=== PATIENT | male | born 1955 | race Caucasian/White ===

== ENCOUNTER 2018-09-20 17:55 | Inpatient (IN) | payer OTHER, MEDICAID ==
[~2018-09-20] VITALS: Ht 188 cm; Wt 74.8 kg
[2018-09-20 18:09] VITALS: BP_SYST 123
[2018-09-20 19:00] LABS: BASOPHILS # (AUTO) 0.1 K/uL (0.0-0.2); BASOPHILS % (AUTO) 2.3 % (0.0-2.0); EOSINOPHILS # (AUTO) 0.2 K/uL (0.0-0.4); EOSINOPHILS % (AUTO) 3.7 % (0.0-4.0); HEMATOCRIT 30.3 % (36-54); HEMOGLOBIN 9.3 g/dL (14.0-18.0); LYMPHOCYTES # (AUTO) 1.4 K/uL (1.0-5.5); LYMPHOCYTES % (AUTO) 26.2 % (20.5-51.5); MEAN CORPUSCULAR HEMOGLOBIN 27 pg (27-31); MEAN CORPUSCULAR HGB CONC 31 % (32-36); MEAN CORPUSCULAR VOLUME 87 fL (79.0-98.0); MONOCYTES # (AUTO) 0.5 K/uL (0.0-1.0); MONOCYTES % (AUTO) 8.4 % (1.7-9.3); NEUTROPHILS # (AUTO) 3.3 K/uL (1.8-7.7); NEUTROPHILS % (AUTO) 59.4 % (40.0-70.0); PLATELET COUNT (AUTO) 334 K/uL (130-430); RED CELL DISTRIBUTION WIDTH 17.9 % (9.0-15.0); WHITE BLOOD COUNT (AUTO) 5.5 K/uL (4.8-10.8)
[2018-09-20 19:31] LABS: INR 0.9 (0.80-1.20); PROTHROMBIN TIME 9.4 SECS (9.5-12.5)
[2018-09-20 19:50] LABS: CALCIUM 8.6 mg/dL (8.4-11.0); CREATININE 1.37 mg/dL (0.55-1.30)
[2018-09-20 19:56] LABS: ALBUMIN 3.6 g/dL (3.4-4.8); TOTAL BILIRUBIN 0.1 mg/dL (0.0-1.0)
--- NOTE | 2018-09-20 20:18 | NUR ---
Patient to ER bed 1 to gown for evaluation. Side rails up. Report given to KAMALA MCCLOUD.
--- NOTE | 2018-09-20 20:38 | NUR ---
2037 - Assumed care of pt, pt states he has been constipated x 3 days. Pain is suprapubic area. States he has to use milk of magnesia for every BM and has had that issue off and on for the last 3 years, since the morphine pain pump was inserted. Pt is A&OX4, states pain is 9/10. Vss. Pt requesting dilaudid for pain. Will continue to monitor.
--- NOTE | 2018-09-20 22:38 | NUR ---
2238 - ER at bedside examining patient.
[2018-09-20] MEDS ORDERED: PRO40 PO (23:01)
[2018-09-20] MEDS ORDERED: FURO-150 PO (23:01)
[2018-09-20] MEDS ORDERED: TRAZ-219 PO (23:01)
[2018-09-20] MEDS ORDERED: POTA8TAB4 PO (23:01)
[2018-09-20] MEDS ORDERED: VENL75CA PO (23:01)
[2018-09-20] MEDS ORDERED: TOP25 PO (23:01)
--- NOTE | 2018-09-20 23:31 | NUR ---
2331 - Patient will be admitted to care of [facility]. Admitted to med surg unit. Will go to room 110B. Belongings list completed. Summary report printed. Report given over phone.
--- NOTE | 2018-09-20 23:50 | NUR ---
ADMISSION NOTE Received patient from ER via gurney. Patient admitted with diagnosis of FECAL IMPACTION. Patient is awake, alert, oriented X 4. Patient oriented to hospital room, call light, toileting, pain management and safety-teach back done. Patient informed that MYRTLE will be HIS nurse and that their room number is 110B. Personal belongings checked and Belongings List documented. Call light within reach.
[2018-09-21] MEDS ORDERED: LORazepam 2 MG/ML VIAL IVP PRN
[2018-09-21] MEDS ORDERED: ONDANSETRON HCL 4 MG/2 ML VIAL IVP PRN
[2018-09-21] MEDS: D5/0.45 NS 1,000 ML IV SCH ×3 (00:33→21:08)
[2018-09-21] MEDS ORDERED: traZODone HCL 50 MG TABLET (DESYREL) PO SCH (01:00)
--- NOTE | 2018-09-21 01:05 | NUR ---
Consultation Paged Reason for Consultation: order Was consult called: Y Person who was notified: [employer] Consulting Physician: Sue Schultz (Dr. Galvan documentation spec) Furnace Worker Ordering Physican: Babar Doherty
[2018-09-21 01:32] VITALS: BP_SYST 138
[2018-09-21] MEDS ORDERED: DOCUSATE SODIUM 100 MG CAPSULE PO PRN (06:30)
--- NOTE | 2018-09-21 06:40 | NUR ---
CLOSING: PATIENT SLEPT AT LONG INTERVALS AFTER TRAZADONE TAKEN.VITAL SIGNS STABLE. IVF INFUSING WELL SITE CLEAR. NO ACUTE CARDIOPULMONARY DISTRESS SINCE ADMIT.CALL LIGHT WITHIN REACH. BED IN LOW POSITION.WILL ENDORSE CARE TO AM RN FOR CONTINUATION.HAS NOT VOIDED ,SAID WILL DO LATER,HAD SOME IN ER.
[2018-09-21 06:53] LABS: BASOPHILS # (AUTO) 0.1 K/uL (0.0-0.2); BASOPHILS % (AUTO) 1.3 % (0.0-2.0); EOSINOPHILS # (AUTO) 0.1 K/uL (0.0-0.4); EOSINOPHILS % (AUTO) 2.1 % (0.0-4.0); HEMATOCRIT 28.6 % (36-54); HEMOGLOBIN 8.9 g/dL (14.0-18.0); LYMPHOCYTES # (AUTO) 1.5 K/uL (1.0-5.5); LYMPHOCYTES % (AUTO) 25.6 % (20.5-51.5); MEAN CORPUSCULAR HEMOGLOBIN 27 pg (27-31); MEAN CORPUSCULAR HGB CONC 31 % (32-36); MEAN CORPUSCULAR VOLUME 85 fL (79.0-98.0); MONOCYTES # (AUTO) 0.6 K/uL (0.0-1.0); NEUTROPHILS # (AUTO) 3.5 K/uL (1.8-7.7); PLATELET COUNT (AUTO) 298 K/uL (130-430); RED BLOOD CELL COUNT(AUTO) 3.35 MIL/uL (4.2-6.2); RED CELL DISTRIBUTION WIDTH 17.9 % (9.0-15.0); WHITE BLOOD COUNT (AUTO) 5.9 K/uL (4.8-10.8)
[2018-09-21 07:27] LABS: ALBUMIN 3.1 g/dL (3.4-4.8); CALCIUM 8.4 mg/dL (8.4-11.0); CREATININE 1.23 mg/dL (0.55-1.30); POTASSIUM 3.5 mmol/L (3.5-5.1); TOTAL BILIRUBIN 0.3 mg/dL (0.0-1.0)
[2018-09-21 08:00] VITALS: BP_SYST 150
--- NOTE | 2018-09-21 08:00 | NUR ---
AM NOTES IN BED, AWAKE. DENIES ANY PAIN AT THIS TIME. DENIES ANY SHORTNESS OF BREATH. IVF INFUSING WELL. AMBULATE WITH ASSIST. REFUSED BED ALARM. SAFETY PRECAUTION OBSERVED. ENC. TO CALL FOR HELP NEEDED. CALL LIGHT IN REACH. WILL MONITOR.
[2018-09-21] MEDS: POTASSIUM CHLORIDE 8 MEQ TABLET.SA PO SCH (08:31)
[2018-09-21] MEDS: PANTOPRAZOLE SODIUM 40 MG TAB PO SCH ×2 (08:31→21:06)
[2018-09-21] MEDS: FUROSEMIDE 20 MG TABLET PO SCH (08:32)
[2018-09-21] MEDS: POLYETHYLENE GLYCOL 3350, 17 GM/ POWD.PACK PO SCH (08:32)
--- NOTE | 2018-09-21 09:36 | NUR ---
MD ROUNDS' SEEN BY DR. CONTEH AT BEDSIDE.
[2018-09-21] MEDS ORDERED: MAGNESIUM CITRATE 300 ML ORAL SOLUTION PO ONE (09:45)
[2018-09-21] MEDS: Effexor XR 37.5 MG PO SCH (10:15)
--- NOTE | 2018-09-21 11:00 | NUR ---
notes- Pt complains of pain on his IV on the right AC. removed IV and started a new one on the right upper arm no.22.
[2018-09-21 11:32] VITALS: BP_SYST 142
[2018-09-21] MEDS: MINERAL OIL 30 ML UDC PO SCH ×2 (12:00→17:10)
--- NOTE | 2018-09-21 12:26 | NUR ---
pt refused mineral oil.
--- NOTE | 2018-09-21 15:07 | NUR ---
Notes Assisted to the bathroom and had big bowel movement. family at bedside. denies any pain at this time. no distress noted.
[2018-09-21 15:39] VITALS: BP_SYST 154
--- NOTE | 2018-09-21 18:30 | NUR ---
Notes- In bed, eating dinner. family at bedside. no distress noted. has bowel movement. refused mineral oil.
--- NOTE | 2018-09-21 18:45 | NUR ---
Notes Patient complain of pain on his hips, pelvic area. no ordered for pain medication. Paged Dr. Cruz.
--- NOTE | 2018-09-21 18:59 | NUR ---
PAGED PAGED DANA MELTON FOR ORDERS, SPOKE WITH JODIE.
--- NOTE | 2018-09-21 19:55 | NUR ---
DR. Adrian CORTEZ CALLED BACK, NO ORDER GIVEN FOR PRN PAIN MEDICATION SINCE PATIENT HAS ALREADY MORPHINE PUMP. WILL CONTINUE TO MONITOR.
[2018-09-21 20:00] VITALS: BP_SYST 145
--- NOTE | 2018-09-21 20:30 | NUR ---
ROUNDS PATIENT RESTING COMFORTABLY IN BED, NOT IN DISTRESS, VITALS STABLE. CLAIMED TO HAVE PAIN ON HIS PELVIC AREA AND TO HIS THIGHS AND WANTS PAIN MEDICATION. STILL WAITING FOR DR. CORTEZ TO RETURN CALL FOR ORDERS. NEEDS ATTENDED TO. ASSESSMENT DONE AND DOCUMENTED. SEE FLOWSHEET. SAFETY AND FALL PRECAUTION MEASURES IN PLACED. PATIENT REFUSED BED ALARM ON. CALL LIGHT PLACED WITHIN REACH.
[2018-09-21] MEDS ORDERED: BUDESONIDE/FORMOTEROL 160-4.5 mCg, 6 GM INHALER INH SCH (21:00)
[2018-09-21] MEDS ORDERED: LUBIPROSTONE 24 MCG CAPSULE PO SCH (21:00)
[2018-09-21] MEDS: traZODone HCL 50 MG TABLET (DESYREL) PO SCH (21:07)
[2018-09-21] MEDS: TOPIRAMATE 25 MG TABLET(TOPAMAX) PO SCH (21:07)
--- NOTE | 2018-09-22 00:14 | NUR ---
PATIENT RESTING: Patient resting quietly. No acute distress noted. Vital signs within normal range.
--- NOTE | 2018-09-22 02:15 | NUR ---
ROUNDS PATIENT ASLEEP, RESPIRATIONS EVEN AND UNLABORED, NO SIGNS OF ANY PAIN AND DISCOMFORT NOTED. WILL CONTINUE TO MONITOR.
[2018-09-22 02:17] VITALS: BP_SYST 133
[2018-09-22] MEDS: BUDESONIDE 0.5 MG/2 ML AMPUL.NEB INH SCH ×3 (02:30→20:33)
[2018-09-22] MEDS: ALBUTEROL SULFATE 0.083% 2.5 MG/3 ML VIAL.NEB INH SCH ×3 (02:30→20:02)
--- NOTE | 2018-09-22 04:10 | NUR ---
PATIENT RESTING: Patient resting quietly. No acute distress noted. Vital signs within normal range.
[2018-09-22] MEDS: D5/0.45 NS 1,000 ML IV SCH ×3 (05:58→22:05)
[2018-09-22] MEDS: MINERAL OIL 30 ML UDC PO SCH ×2 (06:00)
--- NOTE | 2018-09-22 06:24 | NUR ---
CLOSING NOTES PATIENT AWAKE, VITALS STABLE, NO PAIN AT THIS TIME. ALL NEEDS ATTENDED TO. SAFETY AND FALL PRECAUTION MEASURES MAINTAINED. CALL LIGHT PLACED WITHIN REACH.
[2018-09-22 06:58] LABS: BASOPHILS % (AUTO) 0.7 % (0.0-2.0); EOSINOPHILS # (AUTO) 0.1 K/uL (0.0-0.4); EOSINOPHILS % (AUTO) 1.6 % (0.0-4.0); HEMOGLOBIN 9.1 g/dL (14.0-18.0); LYMPHOCYTES # (AUTO) 1.7 K/uL (1.0-5.5); LYMPHOCYTES % (AUTO) 31.6 % (20.5-51.5); MEAN CORPUSCULAR HEMOGLOBIN 27 pg (27-31); MEAN CORPUSCULAR HGB CONC 31 % (32-36); MEAN CORPUSCULAR VOLUME 86 fL (79.0-98.0); MONOCYTES # (AUTO) 0.7 K/uL (0.0-1.0); MONOCYTES % (AUTO) 12.8 % (1.7-9.3); NEUTROPHILS # (AUTO) 2.9 K/uL (1.8-7.7); NEUTROPHILS % (AUTO) 53.3 % (40.0-70.0); PLATELET COUNT (AUTO) 305 K/uL (130-430); RED BLOOD CELL COUNT(AUTO) 3.38 MIL/uL (4.2-6.2); RED CELL DISTRIBUTION WIDTH 17.6 % (9.0-15.0); WHITE BLOOD COUNT (AUTO) 5.4 K/uL (4.8-10.8)
[2018-09-22 07:24] LABS: CALCIUM 8.2 mg/dL (8.4-11.0); CREATININE 1.09 mg/dL (0.55-1.30); POTASSIUM 3.7 mmol/L (3.5-5.1)
[2018-09-22 07:40] LABS: TOTAL IRON BIND. CAPACITY 427 ug/dL (250-450)
[2018-09-22 07:45] VITALS: BP_SYST 147
[2018-09-22 07:52] VITALS: BP_SYST 147
--- NOTE | 2018-09-22 08:03 | NUR ---
AM NOTES- IN BED, EATING BREAKFAST. PAIN IS CONTROLLED, HAS PAIN PUMP ON RIGHT ABDOMEN. IVF INFUSING WELL. SAFETY PRECAUTION OBSERVED. CALL LIGHT IN REACH. ENC. TO CALL FOR HELP NEEDED.
[2018-09-22] MEDS: PANTOPRAZOLE SODIUM 40 MG TAB PO SCH ×2 (08:56→20:42)
[2018-09-22] MEDS: FUROSEMIDE 20 MG TABLET PO SCH (08:57)
[2018-09-22] MEDS: LUBIPROSTONE 24 MCG CAPSULE PO SCH ×2 (08:57→20:42)
[2018-09-22] MEDS: POTASSIUM CHLORIDE 8 MEQ TABLET.SA PO SCH (08:57)
[2018-09-22] MEDS: Effexor XR 37.5 MG PO SCH (08:57)
[2018-09-22] MEDS: POLYETHYLENE GLYCOL 3350, 17 GM/ POWD.PACK PO SCH ×2 (08:57→09:00)
--- NOTE | 2018-09-22 11:46 | NUR ---
NOTES- RESTING IN BED, DENIES ANY PAIN OR SHORTNESS OF BREATH. ENC, TO CALL FOR HELP NEEDED.
[2018-09-22 12:02] VITALS: BP_SYST 140
[2018-09-22 16:02] VITALS: BP_SYST 129
--- NOTE | 2018-09-22 16:06 | NUR ---
Notes- patient's at bedside and asking if there is an order for colonoscopy. Patient's stated that she wants colonoscopy because its been more than five years. [address] Galvan. waiting for MD to call back.
--- NOTE | 2018-09-22 17:38 | NUR ---
notes- Spoke to Dr. suggs and made aware of patient's request to do colonoscopy. Per MD, They can do Colonoscopy as an outpatient and just follow up with him as an outpatient. Informed patient, is not at bedside anymore.
--- NOTE | 2018-09-22 18:59 | NUR ---
NOTES- IN BED, AWAKE. EATING DINNER. IVF INFUSING WELL. NO CHANGE IN ASSESSMENT. ALL NEEDS MEET. WILL ENDORSE.
[2018-09-22 19:08] VITALS: BP_SYST 127
--- NOTE | 2018-09-22 19:08 | NUR ---
Start of shift notes Received patient in bed awake alert oriented x4. No c/o pain and no s/s of any distress noted. IV noted to R a/c g 20 no infiltrate and with good blood return. Morphine pump to LLQ noted, and spinal stimulator to L buttocks. BUE are strong and BLE are mildly weak. Discussed plan of care with anxiety and verbalized understanding. Will cont to monitor.
[2018-09-22] MEDS: TOPIRAMATE 25 MG TABLET(TOPAMAX) PO SCH (20:42)
[2018-09-22] MEDS: traZODone HCL 50 MG TABLET (DESYREL) PO SCH (20:42)
--- NOTE | 2018-09-22 21:46 | NUR ---
Rounds Assisted to b/r and safely back to bed. Will cont to monitor.
[2018-09-23 00:02] VITALS: BP_SYST 131
--- NOTE | 2018-09-23 06:54 | NUR ---
End of shift note Patient is resting with eyes close at this time. No c/o pain and no s/s of any distress noted. All needs met and anticipated by noc nurses.Call light in reach, will endorse to incoming nurse.
[2018-09-23 06:59] LABS: BASOPHILS # (AUTO) 0.1 K/uL (0.0-0.2); BASOPHILS % (AUTO) 1.2 % (0.0-2.0); EOSINOPHILS # (AUTO) 0.1 K/uL (0.0-0.4); EOSINOPHILS % (AUTO) 2.2 % (0.0-4.0); HEMATOCRIT 28.2 % (36-54); HEMOGLOBIN 8.8 g/dL (14.0-18.0); LYMPHOCYTES # (AUTO) 1.7 K/uL (1.0-5.5); LYMPHOCYTES % (AUTO) 31.8 % (20.5-51.5); MEAN CORPUSCULAR HEMOGLOBIN 27 pg (27-31); MEAN CORPUSCULAR HGB CONC 31 % (32-36); MEAN CORPUSCULAR VOLUME 85 fL (79.0-98.0); MONOCYTES # (AUTO) 0.8 K/uL (0.0-1.0); MONOCYTES % (AUTO) 14.1 % (1.7-9.3); NEUTROPHILS # (AUTO) 2.7 K/uL (1.8-7.7); NEUTROPHILS % (AUTO) 50.7 % (40.0-70.0); PLATELET COUNT (AUTO) 279 K/uL (130-430); RED BLOOD CELL COUNT(AUTO) 3.32 MIL/uL (4.2-6.2); RED CELL DISTRIBUTION WIDTH 17.7 % (9.0-15.0); WHITE BLOOD COUNT (AUTO) 5.4 K/uL (4.8-10.8)
--- NOTE | 2018-09-23 07:20 | NUR ---
Initial notes: Patient awake, alert and oriented. Stable. I.V. access patent. Discussed plan of care. Call light within reach. Safety measures in placed. Report received from [facility].
[2018-09-23] MEDS: ALBUTEROL SULFATE 0.083% 2.5 MG/3 ML VIAL.NEB INH SCH (07:38)
[2018-09-23] MEDS: BUDESONIDE 0.5 MG/2 ML AMPUL.NEB INH SCH (07:39)
[2018-09-23 07:42] LABS: CALCIUM 8.2 mg/dL (8.4-11.0); CREATININE 0.99 mg/dL (0.55-1.30); POTASSIUM 4.2 mmol/L (3.5-5.1)
[2018-09-23 08:00] VITALS: BP_SYST 138
[2018-09-23] MEDS: LUBIPROSTONE 24 MCG CAPSULE PO SCH (08:47)
[2018-09-23] MEDS: PANTOPRAZOLE SODIUM 40 MG TAB PO SCH (08:47)
[2018-09-23] MEDS: POTASSIUM CHLORIDE 8 MEQ TABLET.SA PO SCH (08:47)
[2018-09-23] MEDS: FUROSEMIDE 20 MG TABLET PO SCH (08:48)
[2018-09-23] MEDS: D5/0.45 NS 1,000 ML IV SCH (08:49)
[2018-09-23] MEDS: POLYETHYLENE GLYCOL 3350, 17 GM/ POWD.PACK PO SCH (08:55)
[2018-09-23] MEDS: Effexor XR 37.5 MG PO SCH (08:55)
--- NOTE | 2018-09-23 11:09 | NUR ---
rounds: patient resting on bed. no distress noted.
[2018-09-23 12:02] VITALS: BP_SYST 124
--- NOTE | 2018-09-23 13:21 | NUR ---
rounds: patient on bed finishing lunch meal. no distress noted.
--- NOTE | 2018-09-23 15:25 | NUR ---
P.T. NOTES P.T. AXEL COMPLETED; NURSING TO AMBULATE AD JAMIA. Addendum: 09/23/18 at 1525 by Sherron Humphrey PT Amended: Links added.
[2018-09-23] MEDS ORDERED: POLY17PO4 PO (16:06)
[2018-09-23] MEDS ORDERED: LUBI24CA5 PO (16:06)
[2018-09-23 16:26] VITALS: BP_SYST 123
--- NOTE | 2018-09-23 16:51 | NUR ---
D/C Patient Patient given medication reconciliation form and D/C instructions. Exit Care provided. Patient verbalized understanding. MD discussed with patient the results and treatment provided. Ambulatory with steady gait for discharge to home. Patient in stable condition, ID band removed. IV catheter removed, intact and dressing applied, no active bleeding. Rx of Amitiza and Miralax given. Patient educated on pain management. All belongings sent with patient.
[2018-09-25 05:21] LABS: FOLATE (FOLIC ACID) >20.0 ng/mL (>3.0)
[2018-09-25 11:53] LABS: FERRITIN 7 ng/mL (30-400)
== END 2018-09-23 17:07 | disposition home or self-care (01) | DRG 684 ==
LOC: SED 17:55 → SMU 22:53
PROVIDERS: ADMIT Preventive Medicine Preventive Medicine/Occupational Environmental Medicine; ATTEND Preventive Medicine Preventive Medicine/Occupational Environmental Medicine
DX: N17.9 Acute kidney failure, unspecified (principal); D64.9 Anemia, unspecified; R14.0 Abdominal distension (gaseous); K56.41 Fecal impaction; E78.5 Hyperlipidemia, unspecified; E83.51 Hypocalcemia; G89.29 Other chronic pain; N18.9 Chronic kidney disease, unspecified; E53.8 Deficiency of other specified B group vitamins; R73.9 Hyperglycemia, unspecified; F11.90 Opioid use, unspecified, uncomplicated; T40.605A Adverse effect of unspecified narcotics, initial encounter; M81.0 Age-related osteoporosis without current pathological fracture; Z88.5 Allergy status to narcotic agent; Z87.891 Personal history of nicotine dependence; Z88.2 Allergy status to sulfonamides; Z88.9 Allergy status to unspecified drugs, medicaments and biological substances; Y92.89 Other specified places as the place of occurrence of the external cause
CPT/HCPCS: 36415; 80048; 80053; 82150-TC; 82607; 82728; 82746; 83540-TC; 83550-TC; 83605; 83690-TC; 85025; 85610-TC; 85730-TC; 94640; 94760; 97163; 99285; J7613; J7626